=== PATIENT | female | born 1955 | race Caucasian/White ===

== ENCOUNTER 2024-04-25 20:44 | Emergency (ER) | payer MEDICARE ==
[2024-04-25] VITALS (14 sets, daily range): BP systolic 154–188; BP diastolic 80–109
[~2024-04-25 20:44] MED LIST: ADVAIR HF1 IN; ASTELIN NASA137 MCG; ESTRADIOL; NEXIUM20 M1 PO; SINGULAIR10 MG PO; T-3; VERAMYST27.5 MCG; VITAMIN C500 M1 OR; XYZAL5 MG PO
[2024-04-25] MEDS ORDERED: LISINOPRIL2.5 MG PO (21:22)
[2024-04-25] MEDS ORDERED: COZAAR (21:23)
[2024-04-25] MEDS ORDERED: AZELASTINE0.05 % OP (21:25)
[2024-04-25] MEDS ORDERED: diazePAM 10 MG/2 ML VIAL IV ONE (21:35)
[2024-04-25] MEDS ORDERED: SYNTHROID25 MCG PO (21:39)
[2024-04-25] MEDS ORDERED: NEXIUM40 M1 PO (21:39)
[2024-04-25] MEDS ORDERED: METFORMIN HCL1000 MG PO (21:39)
[2024-04-25] MEDS ORDERED: XANAX0.25 MG PO (21:39)
[2024-04-25] MEDS ORDERED: BIOTIN1 MG (21:40)
[2024-04-25] MEDS ORDERED: ESTRADIOL XX (21:40)
[2024-04-25] MEDS ORDERED: FLEXERIL5 M1 PO (21:41)
[2024-04-25] MEDS ORDERED: ASPIRINCHW 81MG PO (21:42)
[2024-04-25 22:18] LABS: BASO% 0.4 % (0-3); EOS% 3.2 % (0-8); HEMATOCRIT 37.3 % (37.0-47.0); IMMATURE GRANULOCYTES 0.4 % (0.0-5.0); LYMPH% 24.7 % (15-41); MEAN CELL VOLUME 94.7 fL CALC (80.0-100.0); MEAN CORPUSCULAR HGB 30.5 pG CALC (26.0-32.0); MEAN CORPUSCULAR HGB CONC 32.2 g/dL CAL (32.0-36.0); MONO% 9.5 % (2-13); NEUT# 5.58 thou/uL (2.00-7.15); NEUT% 61.8 % (42-76); RED BLOOD COUNT 3.94 mill/uL (4.20-5.60); RED CELL DISTRI WIDTH 13.8 % (11.5-15.5)
[2024-04-25 22:30] LABS: ALBUMIN 4.1 g/dL (3.2-5.0); ALKALINE PHOSPHATASE 48 u/l (38-126); ANION GAP 8 (6-22 (CALC)); BILIRUBIN, TOTAL 0.3 mg/dL (0.02-1.3); BUN 18 mg/dL (8-23); BUN/CREATININE RATIO 26 (12-20 (CALC)); CARBON DIOXIDE 25 mmol/l (22-30); CHLORIDE 105 mmol/l (95-108); CREATININE 0.7 mg/dL (0.5-1.0); ESTIMATED GFR 93 ML/MIN (>=90 (CALC)); ETHYL ALCOHOL 0 mg/dl (0-30); POTASSIUM 3.9 mmol/l (3.5-5.1); SGOT/AST 28 u/l (9-36); SODIUM 134 mmol/l (137-146); TOTAL PROTEIN 6.9 g/dL (6.3-8.2)
[2024-04-26] VITALS: BP 163/81
[2024-04-26 00:15] VITALS: BP 158/79
[2024-04-26 00:30] VITALS: BP 169/89
[2024-04-26 00:45] VITALS: BP 156/90
[2024-04-26 01:13] VITALS: BP 156/90
== END 2024-04-26 01:15 | disposition home or self-care (01) ==
LOC: ED 20:44
PROVIDERS: Emergency Medicine
DX: R55 Syncope and collapse (principal); F41.9 Anxiety disorder, unspecified; I10 Essential (primary) hypertension; Z63.4 Disappearance and death of family member